=== PATIENT | male | born 1995 | race African-American/Black ===

== ENCOUNTER 2017-02-13 20:59 | Emergency (ER) | payer OTHER ==
[~2017-02-13] VITALS: Ht 165.1 cm; Wt 70.3 kg
== END 2017-02-14 00:35 | disposition home or self-care (01) ==
LOC: CFTX 20:59 → CED 20:59 → CFTX 23:59
DX: S61.212A Laceration without foreign body of right middle finger without damage to nail, initial encounter (principal); F17.200 Nicotine dependence, unspecified, uncomplicated; X78.8XXA Intentional self-harm by other sharp object, initial encounter; Y92.009 Unspecified place in unspecified non-institutional (private) residence as the place of occurrence of the external cause
CPT/HCPCS: 12001; 99283